=== PATIENT | female | born 1930 | race Caucasian/White ===

== ENCOUNTER 2018-11-28 13:53 | Inpatient (IN) | payer MEDICARE ==
[~2018-11-28] VITALS: Ht 170.2 cm; Wt 65.8 kg
--- NOTE | ~2018-11-28 | PN ---
PATIENT:JAROCHO VILLA MEDICAL RECORD: [id number] LOCATION:[facility]113 ADMISSION DATE: 11/28/18 PROGRESS NOTE DATE OF SERVICE: 12/10/2018 SUBJECTIVE: Ms. Villa is an 88-year-old female, resident from the [facility]. She was getting increasingly confused, anxious, agitated, and aggressive with verbal and physical aggression. She threw ice water on a resident. Her behavior here mainly consists of loud wailing constantly as if she is in great distress. Nursing reports will hover over patients and attempt to steal their food. Yesterday, she was crying, but not wailing. Today, she seemed distressed, but was not crying. Nursing reported yesterday and today the patient seems to be repeating sets of numbers over and over and over again as if some sort of compulsion. OBJECTIVE: LATEST VITAL SIGNS: 98.1, 81, 18, 144/55, and 95%. 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 PLAN: We will add Zoloft 25 mg, whether it be for depressive symptomatology, which the patient certainly has anxious distress versus possible obsessions and compulsions. We will see if an SSRI will help with this symptomatology. Prognosis is guarded. Case discussed with nursing, chart reviewed and patient interviewed. TRANSINT:[id number] Voice Confirmation ID: [id number] DOCUMENT ID: [id number] MAMTA HA MD CC: [id number] DICTATION DATE: 12/10/18 1101 SKATING RINK MANAGER: 12/10/18 1152 ADM IN [facility] [address] [place] [address]
--- NOTE | ~2018-11-28 | PN ---
PATIENT:JAROCHO VILLA MEDICAL RECORD: [id number] LOCATION:[facility]113 ADMISSION DATE: 11/28/18 PROGRESS NOTE DATE OF SERVICE: 12/12/2018 SUBJECTIVE: Ms. Villa is an 88-year-old female who was admitted for increased confusion, anxiety, just loud wailing, agitation, and intermittent with counting and spelling according to staff. She apparently had also thrown water on another resident. Notably, whether they are connected or not, after start of Zoloft on Wednesday, the patient's symptoms exacerbated. Somewhat calmer today. She has still some low level crying. No agitation however. On interview, the patient simply was motioning to me to get her some water, but facial expressions looked very distressed. She ate 100%, 0%, and 75% yesterday; slept 8.25 hours; and last BM on December 12. Her latest vital signs are temperature 97.3, pulse 54, respirations 16, blood pressure 137/65, and saturation 97%. ASSESSMENT: Unchanged. PLAN: We will continue Zoloft for now. We will recheck for possible interaction with Gonzales as it might have slightly altered Gonzales's metabolism. I am trying to address the counting and the compulsive-type behaviors with that. However, we will ask Dr. Oconnor to further assess risks versus benefits of that medication. Case discussed with nursing. Chart reviewed and the patient interviewed. TRANSINT:[id number] Voice Confirmation ID: [id number] DOCUMENT ID: [id number] MAMTA HA MD CC: [id number] DICTATION DATE: 12/12/18 1231 EXPLOSIVES MIXER OPERATOR: 12/12/18 1341 ADM IN [facility] [address] [place] [address]
[2018-11-28] MEDS ORDERED: BAYER CHEWABLE81 MG PO (13:59)
[2018-11-28] MEDS ORDERED: DONEPEZIL HCL5 M1 PO (13:59)
[2018-11-28] MEDS ORDERED: DEPAKOTE250 MG PO (14:00)
[2018-11-28] MEDS ORDERED: CELEXA20 MG PO (14:00)
[2018-11-28] MEDS ORDERED: MELATONIN 3 MG1 TAB PO (14:01)
[2018-11-28] MEDS ORDERED: NEURONTIN 300300 MG (14:01)
[2018-11-28] MEDS ORDERED: TIMOPTIC 0.5 % O5 ML RIGHT EYE (14:02)
[2018-11-28] MEDS ORDERED: VITAMIN D31000 UNIT PO (14:02)
[2018-11-28] MEDS ORDERED: XANAX0.5 MG PO (14:03)
[2018-11-28 21:57] VITALS: BP 130/68
[2018-11-29 05:05] VITALS: BP 128/57; BMI 22.7
[2018-11-29 07:50] LABS: BASOPHILS 0.2 % (0-2); EOSINOPHILS 3.2 % (0-7); HEMATOCRIT 38.4 % (36.0-48.0); HEMOGLOBIN 12.4 g/dL (12-16); IMMATURE GRANULOCYTES 0.2 % (0-5); LYMPHOCYTES 13.5 % (15-50); MCH 29.5 pg (26.0-34.0); MCHC 32.3 g/dL (31.0-37.0); MCV 91.4 fL (80.0-100.0); MEAN PLATELET VOLUME 9.6 fL (7.4-10.4); MONOCYTES 9.8 % (2-11); NEUTROPHILS 73.1 % (40-80); PLATELET COUNT 221 10x3/uL (130-400); RDW 13.4 % (11.5-14.5); WBC 8.5 10x3/uL (4.8-10.8)
[2018-11-29 08:04] VITALS: BP 113/66
[2018-11-29 08:13] VITALS: BMI 22.7
[2018-11-29 08:14] LABS: ALBUMIN 3.5 g/dL (3.4-5.0); ANION GAP 15.7 mmol/L (8-16); BILIRUBIN - TOTAL 0.53 mg/dL (0.2-1.3); CALCIUM 9.1 mg/dL (8.5-10.1); CARBON DIOXIDE 25.4 mmol/L (21.0-32.0); CHOL - HDL RATIO 3.2 ratio (2.3-4.1); CREATININE - SERUM 1.1 mg/dL (0.6-1.3); POTASSIUM - SERUM 4.1 mmol/L (3.5-5.1); PROTEIN - SERUM 7.2 g/dL (6.4-8.2); THYROID STIMULATING HORMONE 3.19 uIU/mL (0.36-3.74); VALPROIC ACID (DEPAKOTE) 41.8 ug/mL (50.0-100.0)
[2018-11-29 10:57] VITALS: Ht 170.2 cm; Wt 65.8 kg
[2018-11-29 23:56] LABS: APPEARANCE CLEAR (CLEAR); BACTERIA MANY /hpf (NONE SEEN); BILIRUBIN NEGATIVE (NEGATIVE); COLOR YELLOW (YELLOW); EPITHELIAL CELLS NSEEN /hpf (0-5); GLUCOSE NEGATIVE (NEGATIVE); KETONE NEGATIVE (NEGATIVE); NITRITE NEGATIVE (NEGATIVE); PROTEIN NEGATIVE (NEGATIVE); RED CELLS - URINE NONE SEEN /hpf (0-5); UROBILINOGEN NORMAL (NORMAL)
[2018-11-30 09:19] LABS: FOLATE (FOLIC ACID) - SERUM 16.5 ng/mL (>3.0)
[2018-11-30 11:41] VITALS: BP 118/65
--- NOTE | 2018-11-30 16:05 | PSY ---
PATIENT NAME:JAROCHO SAMSON MEDICAL RECORD: [id number] : [birth year] LOCATION:[facility] Nash1131 ADMISSION DATE: 11/28/18 ACCOUNT: [id number] PSYCHIATRIC EVALUATION DATE OF EVALUATION: 11/29/18 PSYCHIATRIC EVALUATION IDENTIFYING DATA: The patient is 88 years old and she is referred to us on a voluntary basis from a local assisted living center. CHIEF COMPLAINT: Aggression. HISTORY OF PRESENT ILLNESS: The patient lives in the [facility] which is an assisted living center. She has recently been very aggressive there. She has no recollection of this. Apparently, she has been anxious, verbally aggressive towards the staff, and difficult to redirect. On interview, she is oriented to person, but really does not answer questions in any meaningful way. There is a mix up of various words with numbers and she is quite distractable. She tells me that she is 57 years old and that she has 5 children. She is conveying to me a high degree of distress with a low degree of specificity about what is wrong or how it can be addressed. It is just simply a general restlessness that is present. PAST MEDICAL HISTORY: Significant for vision loss in her right eye for reasons that are unknown. She has apparently also had a TIA. PAST PSYCHIATRIC HISTORY: Significant for a long established diagnosis of dementia, but no ongoing longstanding history of any kind of mood disorder. She is described as being an anxious person [facility] and there is no history of drug or alcohol abuse. FAMILY HISTORY: Noncontributory. ALLERGIES: SEROQUEL. CURRENT MEDICATIONS: Include Aricept, aspirin, Celexa, Depakote, melatonin, Neurontin, Xanax, vitamin D3, and Timoptic eye drops. SOCIAL HISTORY: The patient is . She has 5 adult children. She was a homemaker and a housewife and functioned well socially and occupationally without any history of substance abuse or legal entanglements. MENTAL STATUS EXAMINATION: The patient is alert and oriented to person only. Her mood is anxious. Her affect is constricted. Thought processes are circumstantial. Memory, concentration, and abstraction abilities are moderately impaired. She denies any active intent to harm herself or others as well as any overt psychotic symptoms. ASSETS: Supportive family members. LIABILITIES: Limited insight. 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 AXIS II: None. AXIS III: Glaucoma, restless leg syndrome by history, and vision loss to the right eye. AXIS IV: Moderate. AXIS V: Global assessment of functioning is 30. PLAN: At this time, the patient is admitted to the hospital for comprehensive medical, psychological, and social evaluation. She will be treated with both mood stabilizing and memory enhancing medications. Her long-term prognosis is guarded. TRANSINT:[id number] Voice Confirmation ID: [id number] DOCUMENT ID: [id number] ALEKSANDRA PHOENIX MD at 1605 CC: [id number] DICTATION DATE: 11/29/18 1422 GRAIN COMMODITY MANAGER: 11/29/18 1445 ADM IN [place] [address] [place] [address]
[2018-11-30 20:49] VITALS: BP 143/72
--- NOTE | 2018-12-01 16:45 | PN ---
PATIENT:JAROCHO SAMSON MEDICAL RECORD: [id number] LOCATION:[facility]113 ADMISSION DATE: 11/28/18 PROGRESS NOTE DATE OF SERVICE: 11/30/2018 SUBJECTIVE: The patient's case was discussed with staff. She has no new complaint. OBJECTIVE: The patient is considerably calmer today. She has pretty limited insight about her situation, but is much calmer as I mentioned. ASSESSMENT: No change in diagnoses. PLAN: Current medicines and therapies have been reviewed. Both will be maintained. Her long-term prognosis is guarded. TRANSINT:[id number] Voice Confirmation ID: [id number] DOCUMENT ID: [id number] ALEKSANDRA PHOENIX MD at 1645 CC: [id number] DICTATION DATE: 11/30/18 173 GENERAL MACHINE OPERATOR: 12/01/18 0158 ADM IN [facility] [address] [place] [address]
[2018-12-02 15:43] VITALS: BP 122/54
[2018-12-02 19:58] VITALS: BP 131/56
[2018-12-03 07:04] VITALS: BP 103/42
--- NOTE | 2018-12-03 12:41 | PN ---
PATIENT:JAROCHO SAMSON MEDICAL RECORD: [id number] LOCATION:[facility]113 ADMISSION DATE: 11/28/18 PROGRESS NOTE DATE OF SERVICE: 12/02/2018 SUBJECTIVE: The patient's case was discussed with staff. She has no new complaint. OBJECTIVE: The patient received her first dose of Geodon last night. I would say it was helpful. She slept well and she appears a little bit calmer today. It does also appear, based on the culture results, that she has urinary tract infection. I will leave this to Dr. Huang to address; but clearly if that is the case, I am expecting more improvement in her mental status with the treatment of the urinary tract infection. TRANSINT:[id number] Voice Confirmation ID: [id number] DOCUMENT ID: [id number] ALEKSANDRA PHOENIX MD at 1241 CC: [id number] DICTATION DATE: 12/02/18 1622 PRESS AND BLOW MACHINE TENDER: 12/02/18 1909 ADM IN [facility] [address] [place] [id number]
--- NOTE | 2018-12-03 12:41 | PN ---
PATIENT:JAROCHO SAMSON MEDICAL RECORD: [id number] LOCATION:[facility]113 ADMISSION DATE: 11/28/18 PROGRESS NOTE DATE OF SERVICE: 12/01/2018 SUBJECTIVE: The patient's case was discussed with staff. She has no new complaint. OBJECTIVE: The patient denies intent to harm herself or others. She generally tolerates her medicines well. Unfortunately, she has reverted back to the behaviors she had a couple of days ago when she was admitted and that she is clearly very anxious and is answering very simple questions with strings of numbers that are nonsensical. ASSESSMENT: No change in diagnoses. PLAN: I am going to give this patient 20 mg of Geodon at night to assist with thought disorganization. I would say overall she is slightly better than when she was admitted, but significantly worse than she was yesterday. Hopefully, the Geodon will assist with her thought disorganization. TRANSINT:[id number] Voice Confirmation ID: [id number] DOCUMENT ID: [id number] ALEKSANDRA PHOENIX MD at 1241 CC: [id number] DICTATION DATE: 12/01/18 190 COMMERCIAL REAL ESTATE ATTORNEY: 12/02/18 0039 ADM IN [facility] [address] [place] [id number]
[2018-12-03 20:00] VITALS: BP 125/56
[2018-12-04 08:26] VITALS: BP 134/43
--- NOTE | 2018-12-04 12:51 | PN ---
PATIENT:JAROCHO SAMSON MEDICAL RECORD: [id number] LOCATION:[facility]113 ADMISSION DATE: 11/28/18 PROGRESS NOTE DATE OF SERVICE: 12/03/2018 SUBJECTIVE: The patient's case was discussed with staff. She has no new complaint. OBJECTIVE: The patient is in good behavioral control with poor insight about her condition. She tolerates her medicines well. She is a very incoherent, but she is not rambling strings of incoherent numbers that are meaningless. She does answer some basic orientation questions and at least answers some of the simple questions yes or no appropriately. This is a significant improvement. TRANSINT:[id number] Voice Confirmation ID: [id number] DOCUMENT ID: [id number] ALEKSANDRA PHOENIX MD at 1251 CC: [id number] DICTATION DATE: 12/03/18 1253 COSMETIC ASSEMBLER: 12/03/18 1456 ADM IN [place] [id number] [place] [id number]
[2018-12-04 20:00] VITALS: BP 126/65
--- NOTE | 2018-12-05 15:53 | PN ---
PATIENT:JAROCHO SAMSON MEDICAL RECORD: [id number] LOCATION:[facility]113 ADMISSION DATE: 11/28/18 PROGRESS NOTE DATE OF SERVICE: 12/04/2018 SUBJECTIVE: The patient's case was discussed with staff. She has no new complaint. OBJECTIVE: The patient is in good behavioral control with poor insight about her condition. She is tolerating her medicines well. ASSESSMENT: No change in diagnoses. PLAN: Supportive and educational interventions were made. Long-term prognosis is guarded. TRANSINT:[id number] Voice Confirmation ID: [id number] DOCUMENT ID: [id number] ALEKSANDRA PHOENIX MD at 1553 CC: [id number] DICTATION DATE: 12/04/18 1303 GAS STATION SERVICE ATTENDANT: 12/04/18 1807 ADM IN [place] [id number]
[2018-12-05 20:27] VITALS: BP 135/54
[2018-12-06 08:30] VITALS: BP 122/60
--- NOTE | 2018-12-06 15:32 | PN ---
PATIENT:JAROCHO SAMSON MEDICAL RECORD: [id number] LOCATION:[facility]113 ADMISSION DATE: 11/28/18 PROGRESS NOTE DATE OF SERVICE: 12/05/2018 SUBJECTIVE: The patient's case was discussed with staff. She has no new complaint. OBJECTIVE: The patient is quite confused. She has limited insight about her situation. ASSESSMENT: No change in diagnoses. PLAN: Current medicines have been reviewed and will be maintained. I have spoken to her daughter and explained the relative risks and benefits of the medications. As I see it, she has a good understanding of this and I answered her questions for her. TRANSINT:[id number] Voice Confirmation ID: [id number] DOCUMENT ID: [id number] ALEKSANDRA PHOENIX MD at 1532 CC: [id number] DICTATION DATE: 12/05/181717 FILTER CLEANER: 12/05/18 1904 ADM IN [facility] [address] [place] [address]
[2018-12-06 21:16] VITALS: BP 150/82
[2018-12-07 08:08] VITALS: BP 138/86
--- NOTE | 2018-12-07 15:23 | PN ---
PATIENT:JAROCHO SAMSON MEDICAL RECORD: [id number] LOCATION:[facility]113 ADMISSION DATE: 11/28/18 PROGRESS NOTE DATE OF SERVICE: 12/06/2018 SUBJECTIVE: The patient's case was discussed with staff. She has no new complaint. OBJECTIVE: The patient has limited insight about her condition. She is tolerating her medicines well. ASSESSMENT: No change in diagnoses. PLAN: The patient will have her Geodon increased slightly secondary to some serious agitation and disruption that occurred today. TRANSINT:[id number] Voice Confirmation ID: [id number] DOCUMENT ID: [id number] ALEKSANDRA PHOENIX MD at 1523 CC: [id number] DICTATION DATE: 12/06/18 1627 ACTIVITIES DIRECTOR SCOUTING: 12/06/183 ADM IN [place] [address] [place] [id number]
[2018-12-07 20:22] VITALS: BP 117/62
[2018-12-08 08:14] VITALS: BP 100/51
--- NOTE | 2018-12-08 15:20 | PN ---
PATIENT:JAROCHO SAMSON MEDICAL RECORD: [id number] LOCATION:[facility]113 ADMISSION DATE: 11/28/18 PROGRESS NOTE DATE OF SERVICE: 12/07/2018 SUBJECTIVE: The patient's case was discussed with staff. She has no new complaint. OBJECTIVE: The patient is in good behavioral control with limited insight about her condition. She is quite anxious today. ASSESSMENT: No change in diagnoses. PLAN: It is unclear if this higher or different dose of Geodon is going to be effective. Her prognosis is certainly guarded. TRANSINT:[id number] Voice Confirmation ID: [id number] DOCUMENT ID: [id number] ALEKSANDRA PHOENIX MD at 1520 CC: [id number] DICTATION DATE: 12/07/18 1603 VETERINARY MEDICINE DOCTOR: 12/07/18 2321 ADM IN [facility] [address] [place] [address]
[2018-12-08 20:46] VITALS: BP 139/83
[2018-12-08 20:47] VITALS: BP 127/54
[2018-12-09 08:14] VITALS: BP 134/69
--- NOTE | 2018-12-09 11:32 | PN ---
PATIENT:JAROCHO SAMSON MEDICAL RECORD: [id number] LOCATION:[facility]113 ADMISSION DATE: 11/28/18 PROGRESS NOTE DATE OF SERVICE: 12/08/2018 SUBJECTIVE: The patient's case was discussed with staff. She has no new complaint. OBJECTIVE: The patient is in good behavioral control with limited insight about her condition. She is tolerating her medicines well. She is calmer than she was yesterday and does not seem to be showing any evidence of excessive sedation at this point. TRANSINT:[id number] Voice Confirmation ID: [id number] DOCUMENT ID: [id number] ALEKSANDRA PHOENIX MD at 1132 CC: [id number] DICTATION DATE: 12/08/18 1608 NUCLEAR WASTE MANAGEMENT ENGINEER: 12/08/18 1837 ADM IN [place] [id number] [place] [id number]
[2018-12-09 20:00] VITALS: BP 115/63
[2018-12-10 08:26] VITALS: BP 144/55
[2018-12-10 22:58] VITALS: BP 158/58
[2018-12-11 07:59] VITALS: BP 109/55
[2018-12-11 22:25] VITALS: BP 132/61
[2018-12-12 08:00] VITALS: BP 137/65
[2018-12-12 21:06] VITALS: BP 123/48
[2018-12-13 08:00] VITALS: BP 116/43
[2018-12-13 20:00] VITALS: BP 129/49
[2018-12-14 02:37] LABS: APPEARANCE CLEAR (CLEAR); BILIRUBIN NEGATIVE (NEGATIVE); COLOR YELLOW (YELLOW); GLUCOSE NEGATIVE (NEGATIVE); KETONE NEGATIVE (NEGATIVE); NITRITE NEGATIVE (NEGATIVE); PROTEIN NEGATIVE (NEGATIVE); SPECIFIC GRAVITY 1.015 (1.005-1.020); UROBILINOGEN NORMAL (NORMAL)
[2018-12-14 08:23] VITALS: BP 130/70
[2018-12-15 00:47] VITALS: BP 116/54
[2018-12-15 07:59] VITALS: BP 154/76
--- NOTE | 2018-12-15 15:50 | PN ---
PATIENT:JAROCHO SAMSON MEDICAL RECORD: [id number] LOCATION:[facility]113 ADMISSION DATE: 11/28/18 PROGRESS NOTE DATE OF SERVICE: 12/14/2018 SUBJECTIVE: The patient's case was discussed with staff. She has no new complaint. OBJECTIVE: The patient is quite anxious and confused. She has very limited insight about her situation. She is minimally cooperative. ASSESSMENT: No change in diagnoses. PLAN: Supportive and educational interventions were made. Long-term prognosis is guarded. TRANSINT:[id number] Voice Confirmation ID: [id number] DOCUMENT ID: [id number] ALEKSANDRA PHOENIX MD at 1550 CC: [id number] DICTATION DATE: 12/14/18 1647 MDS RN: 12/14/18 1754 ADM IN [place] [address] [place] [id number]
--- NOTE | 2018-12-15 15:50 | PN ---
PATIENT:JAROCHO SAMSON MEDICAL RECORD: [id number] LOCATION:CARLOS NashJessica ADMISSION DATE: 11/28/18 PROGRESS NOTE DATE OF SERVICE: 12/09/2018 SUBJECTIVE: The patient's case was discussed with staff. She has no new complaint. OBJECTIVE: The patient is oriented to person only. She is very tearful and is unable to express what is wrong. She is displaying a high degree of distress with a low degree of specificity about what the problem is. She has been compliant with medications and she did sleep reasonably well last night. Her appetite is still poor and I am going to start her on Megace to assist with appetite stimulation. ASSESSMENT: No change in diagnoses. PLAN: Current medicines have been reviewed. The patient will be given Megace. She is being treated for a urinary tract infection. I am not sure if culture and sensitivity is back and I will leave this to the glass cleaner to address. TRANSINT:[id number] Voice Confirmation ID: [id number] DOCUMENT ID: [id number] ALEKSANDRA PHOENIX MD at 1550 CC: [id number] DICTATION DATE: 12/09/18 1114 THORACIC MEDICINE PHYSICIAN: 12/09/18 1219 ADM IN [facility] [address] [place] [address]
--- NOTE | 2018-12-15 15:50 | PN ---
PATIENT:JAROCHO SAMSON MEDICAL RECORD: [id number] LOCATION:[facility] ADMISSION DATE: 11/28/18 PROGRESS NOTE DATE OF SERVICE: 12/13/2018 SUBJECTIVE: The patient's case was discussed with staff. She has no new complaint. OBJECTIVE: The patient seems significantly worse with regard to her mood. She is very agitated. ASSESSMENT: No change in diagnoses. PLAN: I am going to check a urinalysis. She has not had one since admission and I am concerned about possibility of a recurrent infection. Her family says that she is known to get these on a regular basis. In addition to that, I am going to increase the dose of her Klonopin slightly. TRANSINT:[id number] Voice Confirmation ID: [id number] DOCUMENT ID: [id number] ALEKSANDRA PHOENIX MD at 1550 CC: [id number] DICTATION DATE: 12/13/18 1642 MANAGER POKER: 12/13/18 1657 ADM IN [place] [address] [place] [address]
[2018-12-15 21:52] VITALS: BP 145/69
[2018-12-16 08:14] VITALS: BP 125/42
--- NOTE | 2018-12-16 13:53 | PN ---
PATIENT:JAROCHO SAMSON MEDICAL RECORD: [id number] LOCATION:[facility]113 ADMISSION DATE: 11/28/18 PROGRESS NOTE DATE OF SERVICE: 12/15/2018 SUBJECTIVE: The patient's case was discussed with staff. She has no new complaint. OBJECTIVE: The patient continues to have ongoing episodes of crying and overall anxiety. She is very difficult for the staff to redirect. ASSESSMENT: No change in diagnoses. PLAN: The patient does not have a urinary tract infection. She will be maintained on current medicines; however, I am going to increase the dose of Klonopin slightly. Her long-term prognosis is guarded. TRANSINT:[id number] Voice Confirmation ID: [id number] DOCUMENT ID: [id number] ALEKSANDRA PHOENIX MD at 1353 CC: [id number] DICTATION DATE: 12/15/18 1718 AUTOMATION AND CONTROLS INSTRUCTOR: 12/15/18 2310 ADM IN [place] [address] [place] [address]
[2018-12-16 20:00] VITALS: BP 124/61
[2018-12-17 08:27] VITALS: BP 95/68
--- NOTE | 2018-12-17 12:17 | PN ---
PATIENT:JAROCHO SAMSON MEDICAL RECORD: [id number] LOCATION:CAR[facility] ADMISSION DATE: 11/28/18 PROGRESS NOTE DATE OF SERVICE: 12/16/2018 SUBJECTIVE: The patient's case was discussed with staff. She has no new complaint. OBJECTIVE: The patient denies intent to harm herself or others. She is tolerating her medicines well. She is clearly quite confused and at times very agitated. She has very limited insight about her situation. ASSESSMENT: No change in diagnoses. PLAN: The patient continues to have ongoing difficulties with anxiety. She has had her Klonopin dose increased. I am going to consolidate this into a twice daily dosing schedule. TRANSINT:[id number] Voice Confirmation ID: [id number] DOCUMENT ID: [id number] ALEKSANDRA PHOENIX MD at 1217 CC: [id number] DICTATION DATE: 12/16/18 1607 MESSAGE BROKER DEVELOPER: 12/16/18 2339 ADM IN [place] [id number] [place] [address]
[2018-12-18 01:57] VITALS: BP 137/58
[2018-12-18 10:03] VITALS: BP 130/49
--- NOTE | 2018-12-18 11:49 | PN ---
PATIENT:JAROCHO SAMSON MEDICAL RECORD: [id number] LOCATION:[facility]113 ADMISSION DATE: 11/28/18 PROGRESS NOTE DATE OF SERVICE: 12/17/2018 SUBJECTIVE: The patient's case was discussed with staff. She has no new complaint. OBJECTIVE: The patient denies intent to harm herself or others. She has very limited insight about her condition. ASSESSMENT: No change in diagnoses. PLAN: The patient's Zoloft is going to be increased slightly. Her long-term prognosis is guarded. TRANSINT:[id number] Voice Confirmation ID: [id number] DOCUMENT ID: [id number] ALEKSANDRA PHOENIX MD at 1149 CC: [id number] DICTATION DATE: 12/17/18 1422 DEGREE CLERK: 12/17/18 1448 ADM IN [place] [id number] [place] [address]
[2018-12-18 22:53] VITALS: BP 137/93
[2018-12-19 08:00] VITALS: BP 99/80
--- NOTE | 2018-12-19 15:29 | PN ---
PATIENT:JAROCHO SAMSON MEDICAL RECORD: [id number] LOCATION:[facility]113 ADMISSION DATE: 11/28/18 PROGRESS NOTE DATE OF SERVICE: 12/18/2018 SUBJECTIVE: The patient's case was discussed with staff. She has no new complaint. OBJECTIVE: The patient is in good behavioral control. She has very limited insight about her condition. She is tolerating her medicines well. She is crying still quite a bit. ASSESSMENT: No change in diagnoses. PLAN: The patient will have her Klonopin increased to 0.5 mg four times daily. Her long-term prognosis is guarded. She clearly is not over sedated even with what she is taking now. TRANSINT:[id number] Voice Confirmation ID: [id number] DOCUMENT ID: [id number] ALEKSANDRA PHOENIX MD at 1529 CC: [id number] DICTATION DATE: 12/18/18 1207 DRUM HANDLER: 12/18/18 1228 ADM IN [place] [id number] [place] [address]
[2018-12-19 20:03] VITALS: BP 114/82
[2018-12-20 08:00] VITALS: BP 107/43
[2018-12-20 10:40] VITALS: BP 122/70
--- NOTE | 2018-12-20 12:02 | PN ---
PATIENT:JAROCHO SAMSON MEDICAL RECORD: [id number] LOCATION:[facility]113 ADMISSION DATE: 11/28/18 PROGRESS NOTE DATE OF SERVICE: 12/19/2018 SUBJECTIVE: The patient's case was discussed with staff. She has no new complaint. OBJECTIVE: The patient denies intent to harm herself or others. She tolerates her medicines well. Eye contact is poor. ASSESSMENT: No change in diagnoses. PLAN: The patient continues to be very anxious. She has limited insight about her situation. Her prognosis is guarded. TRANSINT:[id number] Voice Confirmation ID: [id number] DOCUMENT ID: [id number] ALEKSANDRA PHOENIX MD at 1202 CC: [id number] DICTATION DATE: 12/19/18 1624 DEPARTMENT DIRECTOR: 12/19/18 2253 ADM IN [place] [address] [place] [address]
[2018-12-20 23:36] VITALS: BP 137/57
[2018-12-21 07:50] VITALS: BP 131/60
--- NOTE | 2018-12-21 15:37 | PN ---
PATIENT:JAROCHO SAMSON MEDICAL RECORD: [id number] LOCATION:[facility]113 ADMISSION DATE: 11/28/18 PROGRESS NOTE DATE OF SERVICE: 12/20/2018 SUBJECTIVE: The patient's case was discussed with staff. She has no new complaint. OBJECTIVE: The patient is in good behavioral control with limited insight about her condition. She is calmer today. She does not appear to be over sedated. ASSESSMENT: No change in diagnoses. PLAN: Current medicines have been reviewed and will be maintained. Long-term prognosis is guarded. TRANSINT:[id number] Voice Confirmation ID: [id number] DOCUMENT ID: [id number] ALEKSANDRA PHOENIX MD at 1537 CC: [id number] DICTATION DATE: 12/20/18 1324 FIELD STAFF MANAGER: 12/20/18 1420 ADM IN [facility] [address] [place] [address]
[2018-12-21 22:09] VITALS: BP 130/60
[2018-12-22 07:24] VITALS: BP 94/45
--- NOTE | 2018-12-22 14:48 | PN ---
PATIENT:JAROCHO SAMSON MEDICAL RECORD: [id number] LOCATION:[facility]113 ADMISSION DATE: 11/28/18 PROGRESS NOTE DATE OF SERVICE: 12/21/2018 SUBJECTIVE: The patient's case was discussed with staff. She has no new complaint. OBJECTIVE: The patient is having some tearful episodes. She does not look as nearly as calm as she did yesterday, but she also does not look as bad as she did 2 days ago before I increased her medication. I think her long-term prognosis is exceedingly poor. I have spoken with 2 of her daughters about her and at this point, I think the goal is just going to be to make her comfortable. TRANSINT:[id number] Voice Confirmation ID: [id number] DOCUMENT ID: [id number] ALEKSANDRA PHOENIX MD at 1448 CC: [id number] DICTATION DATE: 12/21/18 1623 ADJUNCT INSTRUCTOR: 12/22/18 0016 ADM IN [place] [id number] [place] [address]
[2018-12-22 20:00] VITALS: BP 101/71
[2018-12-23 20:08] VITALS: BP 127/67
[2018-12-24 08:01] VITALS: BP 91/67
--- NOTE | 2018-12-24 12:56 | PN ---
PATIENT:JAROCHO SAMSON MEDICAL RECORD: [id number] LOCATION:[facility] Nash113 ADMISSION DATE: 11/28/18 PROGRESS NOTE DATE OF SERVICE: 12/22/2018 SUBJECTIVE: The patient's case was discussed with staff. She has no new complaint. OBJECTIVE: The patient continues to cry and be extremely anxious and very difficult to redirect. She is clearly either no better or almost no better from when she presented here a month ago. At this point, I am going to stop her psychoactive medications. I have discussed the situation with 2 of her daughters and very extensively today with the treatment team and the plan will be to wash current medicines out of her for a day or two and try a different set of medicines in an attempt to help her. TRANSINT:[id number] Voice Confirmation ID: [id number] DOCUMENT ID: [id number] ALEKSANDRA PHOENIX MD at 1256 CC: [id number] DICTATION DATE: 12/22/18 1512 REAL ESTATE REPRESENTATIVE: 12/22/180 ADM IN [place] [id number] [place] [id number]
--- NOTE | 2018-12-24 12:56 | PN ---
PATIENT:JAROCHO SAMSON MEDICAL RECORD: [id number] LOCATION:[facility] ADMISSION DATE: 11/28/18 PROGRESS NOTE DATE OF SERVICE: 12/23/2018 SUBJECTIVE: The patient's case was discussed with staff. She has no new complaint. OBJECTIVE: The patient is in good behavioral control with poor insight about her condition. She tolerates her medicines well. ASSESSMENT: No change in diagnoses. PLAN: Brief supportive and educational interventions were made. Long-term prognosis is guarded. TRANSINT:[id number] Voice Confirmation ID: [id number] DOCUMENT ID: [id number] ALEKSANDRA PHOENIX MD at 1256 CC: [id number] DICTATION DATE: 12/23/18 1650 COMMUNITY ENGAGEMENT SPECIALIST: 12/23/18 2327 ADM IN [place] [id number] [place] [id number]
[2018-12-25 04:45] VITALS: BP 140/70
[2018-12-25 08:18] VITALS: BP 172/51
--- NOTE | 2018-12-25 12:21 | PN ---
PATIENT:JAROCHO SAMSON MEDICAL RECORD: [id number] LOCATION:[facility] ADMISSION DATE: 11/28/18 PROGRESS NOTE DATE OF SERVICE: 12/24/2018 SUBJECTIVE: The patient's case was discussed with staff. She has no new complaint. OBJECTIVE: The patient is in good behavioral control with limited insight about her condition. She continues to be agitated, fearful and tearful with virtually no reason or the ability to tell me what is wrong or to even be comforted by what she said to her. Her dementia is advanced. Her family is going to visit today. It is going to continue to be my recommendation that comfort care measures be sought. I have spoken extensively to the family on multiple phone calls as have our social work instructor and at this point the expectations are not realistic. By that I mean the family does not want her agitated, but they do not want her sedated. They do not want her anxious, but they do not want to give her anything that will affect her ambulation. They are not accepting that her dementia is end-stage and they are wanting something done to improve her cognition even though they have been told that is not realistic. This patient needs comfort care. If that is not going to be given to her here, I do not have anything I can offer them. Her dementia is end-stage, it is very late. TRANSINT:[id number] Voice Confirmation ID: [id number] DOCUMENT ID: [id number] ALEKSANDRA PHOENIX MD at 1221 CC: [id number] DICTATION DATE: 12/24/18 1348 SOFT SUGAR OPERATOR HEAD: 12/24/18 1431 ADM IN [place] [id number] [place] [address]
[2018-12-25 21:16] VITALS: BP 140/70
[2018-12-26 08:00] VITALS: BP 145/67
--- NOTE | 2018-12-26 16:05 | PN ---
PATIENT:JAROCHO SAMSON MEDICAL RECORD: [id number] LOCATION:[facility] ADMISSION DATE: 11/28/18 PROGRESS NOTE DATE OF SERVICE: 12/25/2018 SUBJECTIVE: The patient's case was discussed with staff. She has no new complaint. OBJECTIVE: The patient is severely impaired cognitively with very limited insight about her condition. ASSESSMENT: No change in diagnoses. PLAN: Supportive and educational interventions were made. The patient will be started on medications to relieve her distress today. Concern will not be given to excessive sedation given the overall situation that has been discussed extensively with the family and documented extensively in this record. At this point, it is agreed that efforts should be made to make her comfortable and that is the primary driving force of what is going to be prescribed. TRANSINT:[id number] Voice Confirmation ID: [id number] DOCUMENT ID: [id number] ALEKSANDRA PHOENIX MD at 1605 CC: [id number] DICTATION DATE: 12/25/18 1242 NATURAL GAS FIELD PROCESSING SUPERVISOR: 12/25/18 1251 ADM IN [place] [id number] [place] [address]
[2018-12-26 20:06] VITALS: BP 96/54
[2018-12-27 07:48] VITALS: BP 157/79
--- NOTE | 2018-12-27 15:21 | PN ---
PATIENT:JAROCHO SAMSON MEDICAL RECORD: [id number] LOCATION:[facility] ADMISSION DATE: 11/28/18 PROGRESS NOTE DATE OF SERVICE: 12/26/2018 SUBJECTIVE: The patient's case was discussed with staff. She has no new complaint. OBJECTIVE: The patient slept very well last night. She actually ate reasonably well yesterday. She is significantly calmer. ASSESSMENT: No change in diagnoses. PLAN: I am going to maintain the patient on her current medicines at this time. I anticipate she can be transitioned out of the hospital soon and again comfort measures are going to be initiated. TRANSINT:[id number] Voice Confirmation ID: [id number] DOCUMENT ID: [id number] ALEKSANDRA PHOENIX MD at 1521 CC: [id number] DICTATION DATE: 12/26/18 1621 SHOULDER PUNCHER: 12/26/18 1737 ADM IN [facility] [address] [place] [address]
[2018-12-27 19:34] VITALS: BP 138/66
[2018-12-28 09:47] VITALS: BP 117/51
--- NOTE | 2018-12-28 15:56 | PN ---
PATIENT:JAROCHO SAMSON MEDICAL RECORD: [id number] LOCATION:[facility] ADMISSION DATE: 11/28/18 PROGRESS NOTE DATE OF SERVICE: 12/27/2018 SUBJECTIVE: The patient's case was discussed with staff. She has no new complaint. OBJECTIVE: The patient is in good behavioral control with limited insight about her condition. She does tolerate her medicines well. ASSESSMENT: No change in diagnoses. PLAN: Brief supportive and educational interventions were made. TRANSINT:[id number] Voice Confirmation ID: [id number] DOCUMENT ID: [id number] ALEKSANDRA PHOENIX MD at 1556 CC: [id number] DICTATION DATE: 12/27/18 1536 SR. PRICING ANALYST: 12/27/18 2341 ADM IN [place] [id number] [place] [address]
[2018-12-28] MEDS ORDERED: GEODON20 MG PO (16:23)
[2018-12-28] MEDS ORDERED: HYDROCODON-ACE1 EAC7 PO (16:23)
[2018-12-28] MEDS ORDERED: MIRALAX17 GM PO (16:24)
[2018-12-28] MEDS ORDERED: MEGACE40 MG PO (16:24)
[2018-12-28 22:07] VITALS: BP 122/60
[2018-12-29 09:29] VITALS: BP 118/63
--- NOTE | 2018-12-29 14:00 | PN ---
PATIENT:JAROCHO SAMSON MEDICAL RECORD: [id number] LOCATION:[facility] ADMISSION DATE: 11/28/18 PROGRESS NOTE DATE OF SERVICE: 12/28/2018 SUBJECTIVE: The patient's case was discussed with staff. She has no new complaint. OBJECTIVE: The patient is actually significantly calmer. She is actually eating a little better. ASSESSMENT: No change in diagnoses. PLAN: Current medicines and therapies have been reviewed, both will be maintained. I think the patient has reached maximum hospital benefit and I plan on discharging her tomorrow if this level of improvement continues. TRANSINT:[id number] Voice Confirmation ID: [id number] DOCUMENT ID: [id number] ALEKSANDRA PHOENIX MD at 1400 CC: [id number] DICTATION DATE: 12/28/18 1622 LICENSED AIRCRAFT MAINTENANCE ENGINEER: 12/28/18 2243 ADM IN [facility] [address] [place] [id number]
--- NOTE | 2018-12-30 17:15 | PN ---
PATIENT:JAROCHO SAMSON MEDICAL RECORD: [id number] LOCATION:[facility] ADMISSION DATE: 11/28/18 PROGRESS NOTE DATE OF SERVICE: 12/29/2018 SUBJECTIVE: The patient's case was discussed with staff. She has no new complaint. OBJECTIVE: The patient is in good behavioral control with poor insight about her condition. She tolerates her medicines well. ASSESSMENT: No change in diagnoses. PLAN: Brief supportive and educational interventions were made. I anticipate the patient could be transitioned out of the hospital today. TRANSINT:[id number] Voice Confirmation ID: [id number] DOCUMENT ID: [id number] ALEKSANDRA PHOENIX MD at 1715 CC: [id number] DICTATION DATE: 12/29/18 1424 INFORMATION ASSURANCE OFFICER: 12/29/18 1909 DIS IN 12/29/18 [facility] [address] [place] [address]
== END 2018-12-29 13:15 | disposition home health service (06) | DRG 57 ==
LOC: D.PSYCH 13:53
PROVIDERS: ADMIT Psychiatry & Neurology Psychiatry
DX: G30.1 Alzheimer's disease with late onset (principal); F02.81 Dementia in other diseases classified elsewhere, unspecified severity, with behavioral disturbance; N39.0 Urinary tract infection, site not specified; H40.9 Unspecified glaucoma; G25.81 Restless legs syndrome; H54.61 Unqualified visual loss, right eye, normal vision left eye; Z86.73 Personal history of transient ischemic attack (TIA), and cerebral infarction without residual deficits; G47.00 Insomnia, unspecified; E55.9 Vitamin D deficiency, unspecified; G62.9 Polyneuropathy, unspecified